=== PATIENT | male | born 1970 | race Caucasian/White ===

== ENCOUNTER 2017-12-06 07:16 | Emergency (ER) | payer OTHER ==
[~2017-12-06] VITALS: Ht 182.9 cm; Wt 121.0 kg
[2017-12-06 07:26] VITALS: BP 120/73; PULSE 106; RESP 18; TEMP 98.1; O2SAT 95
[2017-12-06] MEDS ORDERED: METR1TAB76 PO (09:27)
[2017-12-06] MEDS ORDERED: CIPR-9 PO (09:27)
[2017-12-06] MEDS ORDERED: BENA25TA6 (09:30)
[2017-12-06] MEDS ORDERED: PRED20 PO (09:30)
[2017-12-06] MEDS ORDERED: ATOR10TA15 PO (09:34)
[2017-12-06] MEDS ORDERED: METO1TAB9 PO (09:34)
[2017-12-06] MEDS ORDERED: BENA10TA PO (09:34)
[2017-12-06] MEDS ORDERED: OMEP20TA93 PO (09:34)
[2017-12-06] MEDS ORDERED: EPIP0.3I IM (09:35)
--- NOTE | 2017-12-06 09:35 | PD ---
HPI Chief Complaint: Allergic/Adverse Reaction Time Seen by Provider: 09:25 Travel History International Travel<30 days: No Contact w/Intl Traveler<30days: No Traveled to known affect area: No History of Present Illness HPI Patient is a 47-year-old male who last week was diagnosed with a diverticulitis flare, he was placed on Cipro and Flagyl an outside facility. He never started noticing some rash on his person on Wednesday, he called his physician was told him to stop taking the Flagyl and just take the Cipro, he was started on steroids at 40 mg daily. Patient states that he still having some itching and some rash but it is starting to get better. He decided to come in and be seen here. No fevers no cough no congestion no airway involvement no difficulty swallowing. States symptoms are moderate, all over his body, context and associated signs and symptoms as above per [facility] Past Medical History Narrative Medical Hypertension, hypercholesterolemia, diverticulitis. Past Surgical History Narrative Surgical Tonsillectomy, knee surgery, hernia repair. Cholecystectomy Family History Narrative Family History Noncontributory Social History Tobacco Use: No Allergies-Medications (Allergen,Severity, Reaction): Coded Allergies: ciprofloxacin (Verified Allergy, Mild, Rash, 12/06/17) metronidazole (Verified Allergy, Mild, Rash, 12/06/17) Reported Meds & Prescriptions Reported Meds & Active Scripts Active Epipen 2-Primitivo Inj (Epinephrine) 0.3 Mg/0.3 Ml Pfpen 0.3 Mg IM ONCE PRN Reported Atorvastatin (Atorvastatin Calcium) 10 Mg Tab 10 Mg PO HS Omeprazole 20 Mg Tab 20 Mg PO DAILY Metoprolol Succinate ER 24 HR (Metoprolol Succinate) 50 Mg Tab 50 Mg PO DAILY Benazepril (Benazepril HCl) 10 Mg Tab 10 Mg PO DAILY Benadryl Allergy (Diphenhydramine HCl) 25 Mg Tablet Prednisone 20 Mg Tab 20 Mg PO BID Metronidazole 500 Mg Tab 500 Mg PO TID Cipro (Ciprofloxacin HCl) 500 Mg Tab 500 Mg PO BID Review of Systems Except as stated in HPI: all other systems reviewed are Neg Physical Exam Narrative GENERAL: Well-nourished, well-developed patient. SKIN: Focused skin assessment warm/dry. There are scattered hives on his person particularly over his shoulders, abdomen, extremities. Patient shows me pictures of his hives from the other day and appears as though they are lessened. HEAD: Normocephalic. EYES: No scleral icterus. No injection or drainage. ENT: Airway is widely patent, Mallampati 1, no uvular swelling, no tongue deviation, no lip swelling peer NECK: Supple, trachea midline. No JVD or lymphadenopathy. CARDIOVASCULAR: Regular rate and rhythm without murmurs, gallops, or rubs. RESPIRATORY: Breath sounds equal bilaterally. No accessory muscle use. GASTROINTESTINAL: Abdomen soft, non-tender, nondistended. No rebound no percussive tenderness, abdomen is completely benign. MUSCULOSKELETAL: No cyanosis, or edema. BACK: Nontender without obvious deformity. No CVA tenderness. Data Data Last Documented VS Vital Signs Date Time Temp Pulse Resp B/P (MAP) Pulse Ox O2 Delivery O2 Flow Rate FiO2 12/06/17 07:26 98.1 106 18 120/73 (89) 95 Orders Orders Ed Discharge Order (12/06/17 09:35) MDM Medical Decision Making Medical Screen Exam Complete: Yes Emergency Medical Condition: Yes Differential Diagnosis Diverticulitis, hives, medication reaction. Narrative Course Patient was advised at this time that he certainly could consider stopping the Cipro altogether as he is feeling much better. Discussed that the steroid regimen he is on does carry risk of bowel perforation while he is healing his bowels. I discussed that I did not want to extend the course of his prednisone. Discussed that Benadryl is a good option, discussed that his hives should eventually heal but she also takes talk was like looking for other allergens. At this time is no indication further workup in the emergency department. He is stable for discharge per Diagnosis Primary Impression: Hives Med/Other Pt SpecificInfo: Prescription(s) given Scripts Epinephrine Inj (Epipen 2-Primitivo Inj) 0.3 Mg/0.3 Ml Pfpen 0.3 MG IM ONCE Y for ALLERGIC REACTION, #1 PACK 0 Refills Prov: Raghu Roberto MD 12/06/17 Disposition: 01 DISCHARGE HOME Condition: Stable Raghu Roberto MD Dec 06, 2017 09:35
== END 2017-12-06 10:11 | disposition home or self-care (01) ==
LOC: NEPD 07:16
DX: L50.0 Allergic urticaria (principal); E78.00 Pure hypercholesterolemia, unspecified; I10 Essential (primary) hypertension
CPT/HCPCS: 99283